=== PATIENT | female | born 1985 | race African-American/Black ===

== ENCOUNTER 2016-04-10 12:26 | Emergency (ER) | payer OTHER ==
[~2016-04-10] VITALS: Ht 170.2 cm; Wt 52.8 kg
[~2016-04-10 12:26] MED LIST: FLEXERIL10 MG PO; FLEXERIL5 MG PO; IMITREX50 MG PO; MOBIC15 MG PO; MOTRIN800 MG PO; NAPROSYN500 MG PO; NO HOME MEDS; PREDNISONE10 MG PO; ULTRAM50 MG PO; ZANTAC150 MG PO
[2016-04-10 13:04] LABS: HEMATOCRIT 36.1 % (36.0-46.0); MCH 25.7 PG (29.0-34.0); MCHC 33.5 G/DL (30.0-36.0); MCV 76.8 FL (83-99); MEAN PLAT.VOLUME 10.7 uM^3 (9.5-12.4); PLATELET COUNT 233 K/uL (156-360); RBC DIS.WIDTH-CV 15.6 % (11.8-14.6); WHITE BLOOD COUNT 2.4 K/uL (4.1-10.2)
[2016-04-10 13:14] LABS: CHLORIDE 104 mEq/L (99-109); POTASSIUM 3.5 mEq/L (3.7-5.4); SODIUM 140 mEq/L (136-147)
[2016-04-10 13:16] LABS: GLUCOSE 78 mg/dL (70-99)
[2016-04-10 13:17] LABS: ANION GAP 11 MEQ/L (2-14)
[2016-04-10 13:20] LABS: GFR ESTIMATE (CALCULATED) > 59 mL/min/
[2016-04-10 13:21] LABS: UREA NITROGEN (BUN) 9 mg/dL (9-23)
[2016-04-10 13:25] LABS: TROP-I INTERPRETATION NEGATIVE; TROPONIN-I < 0.01 ng/mL (0.0-0.30)
[2016-04-10 13:29] LABS: QUANTITATIVE HCG < 4.0 MIU/ML
[2016-04-10 14:54] LABS: D-DIMER ELISA 0.69 mg/L FEU (< 0.57)
[2016-04-10] MEDS ORDERED: NAPROXEN500 MG PO (17:07)
[2016-04-10 17:27] VITALS: BP 97/69
== END 2016-04-10 17:28 | disposition home or self-care (01) ==
LOC: EME 12:26
PROVIDERS: Physician Assistant
DX: S29.011A Strain of muscle and tendon of front wall of thorax, initial encounter (principal)
CPT/HCPCS: 71020; 71275; 80048; 84484; 84702; 85027; 85379; 93005; 99281; 99284; J1885; J7120

== ENCOUNTER 2016-11-13 17:46 | Emergency (ER) | payer OTHER ==
[~2016-11-13] VITALS: Ht 170.2 cm; Wt 64.1 kg
[~2016-11-13 17:46] MED LIST changes: +NAPROXEN500 MG PO
[2016-11-13 21:10] LABS: ADD MIUA? YES; BILIRUBIN NEGATIVE; BLOOD LARGE; COLOR YELLOW ((YELLOW)); GLUCOSE (STRIP) NEGATIVE; KETONES NEGATIVE; LEUKOCYTES TRACE; NITRITE NEGATIVE; PROTEIN (STRIP) 30; SPECIFIC GRAVITY 1.013 (1.000-1.030)
[2016-11-13 21:36] LABS: BACTERIA RARE /HPF; EPITHELIAL CELLS 1+ /HPF; MUCUS TRACE /LPF; RED BLOOD CELLS TNTC /HPF (0-5); UCUL ADDED? YES
[2016-11-13] MEDS ORDERED: FIORICET 50-301 EACH PO (23:31)
[2016-11-13] MEDS ORDERED: SKELAXIN800 MG PO (23:31)
[2016-11-13 23:42] VITALS: BP 120/70
== END 2016-11-13 23:52 | disposition home or self-care (01) ==
LOC: EME 17:46
PROVIDERS: Physician Assistant
DX: G44.209 Tension-type headache, unspecified, not intractable (principal); N92.0 Excessive and frequent menstruation with regular cycle; Z97.5 Presence of (intrauterine) contraceptive device
CPT/HCPCS: 76856; 81003; 87077; 87086; 87186; 87210; 99281; 99284; J1100; J1885

== ENCOUNTER 2017-02-28 17:02 | Emergency (ER) | payer OTHER ==
[~2017-02-28] VITALS: Ht 170.2 cm; Wt 65.0 kg
[~2017-02-28 17:02] MED LIST changes: +FIORICET 50-301 EACH PO; +SKELAXIN800 MG PO
[2017-02-28] MEDS ORDERED: FLEXERIL10 MG PO (18:38)
[2017-02-28] MEDS ORDERED: MOTRIN600 MG PO (18:38)
[2017-02-28 19:16] VITALS: BP 115/73
== END 2017-02-28 19:17 | disposition home or self-care (01) ==
LOC: EME 17:02
DX: M62.830 Muscle spasm of back (principal); M54.2 Cervicalgia; M54.6 Pain in thoracic spine; R51 Headache
CPT/HCPCS: 99281; 99283; J1885

== ENCOUNTER 2017-05-10 01:40 | Emergency (ER) | payer OTHER ==
[~2017-05-10] VITALS: Ht 170.2 cm; Wt 65.2 kg
[~2017-05-10 01:40] MED LIST changes: +MOTRIN600 MG PO
[2017-05-10 03:44] VITALS: BP 129/76
== END 2017-05-10 03:55 | disposition home or self-care (01) ==
LOC: EME 01:40
DX: F41.9 Anxiety disorder, unspecified (principal); T40.7X5A Adverse effect of cannabis (derivatives), initial encounter; Z97.5 Presence of (intrauterine) contraceptive device
CPT/HCPCS: 93005; 99281; 99284